=== PATIENT | female | born 1985 | race Hispanic/Latino ===

== ENCOUNTER 2024-02-03 20:45 | Observation (INO) | payer BC ==
[2024-02-03 21:29] LABS: #Basophils 0.05 10x3/uL (0.0-0.2); #Eosinphils 0.02 10x3/uL (0.0-0.5); #Monocytes 0.95 10x3/uL (0.0-1.1); #Neutrophils 13.15 10x3/uL (1.5-8.4); %Basophils 0.3 % (0.0-2.0); %Eosinophils 0.1 % (0.0-6.0); %Lymphocytes 16.4 % (18.0-47.0); %Monocytes 5.6 % (0.0-10.0); %Neutrophils 76.9 % (40.0-75.0); Critical Call w/ Read Back ERS.SM1; Hematocrit 15.3 % (34.9-44.5); Hemoglobin 4.8 g/dL (12.0-15.5); Mean Corpuscular HGB CONC 31.4 g/dL (32.0-36.0); Mean Platelet Volume 10.1 fl (7.4-10.4); Platelet Count 369 10x3/uL (150-450); RBC Distribution Width 14.5 % (11.5-14.5); Red Blood Cell (RBC) Count 1.78 10x6/uL (3.90-5.03); White Blood Cell (WBC) Count 17.1 10x3/uL (3.5-10.5)
[2024-02-03] MEDS ORDERED: Morphine 4 MG/ML VIAL ONE (21:29)
[2024-02-03] MEDS ORDERED: Tranexamic Acid 1,000 MG/10 ML VIAL ONE (21:30)
[2024-02-03] MEDS ORDERED: Ondansetron PF 4 MG/2 ML Vial ONE ×2 (21:30→23:46)
[2024-02-03 21:34] LABS: ALT (SGPT) 10 U/L (8-55); AST (SGOT) 12 U/L (5-34); Albumin 3.1 g/dL (3.5-5.0); Alkaline Phosphatase 27 U/L (40-110); Anion Gap 13 mmol/L (10-20); BUN (Urea Nitrogen) 10 mg/dL (7.0-18.7); Bilirubin, Total 0.2 mg/dL (0.2-1.2); Calc. Creatinine Clearance 0 mL/min (70-130); Calcium 7.9 mg/dL (7.8-10.44); Carbon Dioxide 20 mmol/L (22-29); Chloride 106 mmol/L (98-107); Estimated GFR 99; Globulin 3.1 g/dL (2.4-3.5); Glucose 177 mg/dL (70-105); INR-International Normal Ratio 1.1; Magnesium 1.9 mg/dL (1.6-2.6); Protein, Total 6.2 g/dL (6.0-8.3); Prothrombin Time 11.3 sec (9.5-12.1); Sodium 135 mmol/L (136-145)
[2024-02-03 22:33] LABS: PTT 20.8 sec (22.0-33.0)
[2024-02-03 23:58] LABS: Lactic Acid 1.2 mmol/L (0.5-2.2)
[2024-02-04] MEDS ORDERED: Ondansetron PF 4 MG/2 ML Vial IVP PRN (01:09)
[2024-02-04 01:56] VITALS: BMI 44.9
[2024-02-04 04:20] LABS: #Basophils 0.06 10x3/uL (0.0-0.2); #Monocytes 1.21 10x3/uL (0.0-1.1); #Neutrophils 13.49 10x3/uL (1.5-8.4); %Basophils 0.3 % (0.0-2.0); %Lymphocytes 17.5 % (18.0-47.0); %Monocytes 6.7 % (0.0-10.0); %Neutrophils 74.7 % (40.0-75.0); Hematocrit 20.9 % (34.9-44.5); Hemoglobin 6.9 g/dL (12.0-15.5); Mean Corpuscular Hemoglobin 28.3 pg (27.0-33.0); Mean Corpuscular Volume 85.7 fl (81.6-98.3); Mean Platelet Volume 9.7 fl (7.4-10.4); Platelet Count 295 10x3/uL (150-450); RBC Distribution Width 13.9 % (11.5-14.5); Red Blood Cell (RBC) Count 2.44 10x6/uL (3.90-5.03); White Blood Cell (WBC) Count 18.1 10x3/uL (3.5-10.5)
[2024-02-04] MEDS: Ibuprofen 800 MG TAB PO SCH (07:46)
[2024-02-04] MEDS ORDERED: B12 PO SCH (09:00)
[2024-02-04] MEDS ORDERED: IRON PS COMPLEX PO SCH (09:00)
[2024-02-04] MEDS ORDERED: [UNRECOGNIZED DRUG - OTHER] PO SCH (09:00)
[2024-02-04] MEDS: FLUoxetine HCl 10 MG CAP PO SCH (09:25)
[2024-02-04] MEDS: Tranexamic Acid 650 MG TAB PO SCH (09:25)
[2024-02-04] MEDS: Docusate 100 MG CAP PO SCH (09:26)
[2024-02-04 10:08] LABS: #Basophils 0.05 10x3/uL (0.0-0.2); #Eosinphils 0.03 10x3/uL (0.0-0.5); #Monocytes 1.14 10x3/uL (0.0-1.1); %Basophils 0.3 % (0.0-2.0); %Eosinophils 0.2 % (0.0-6.0); %Lymphocytes 25.4 % (18.0-47.0); %Monocytes 7.1 % (0.0-10.0); %Neutrophils 66.4 % (40.0-75.0); Hematocrit 22.8 % (34.9-44.5); Hemoglobin 7.8 g/dL (12.0-15.5); Mean Corpuscular HGB CONC 34.2 g/dL (32.0-36.0); Mean Corpuscular Hemoglobin 29.3 pg (27.0-33.0); Mean Corpuscular Volume 85.7 fl (81.6-98.3); Platelet Count 260 10x3/uL (150-450); RBC Distribution Width 14.1 % (11.5-14.5); Red Blood Cell (RBC) Count 2.66 10x6/uL (3.90-5.03); White Blood Cell (WBC) Count 16.1 10x3/uL (3.5-10.5)
[2024-02-04 11:50] VITALS: BP 130/67; TEMP 99.1
== END 2024-02-04 12:40 | disposition home or self-care (01) ==
LOC: CSHERS 20:45 → INTOOBSV 22:49 → CSHPP 22:49 → UNDOADMIN 02-04 00:45 → CSHPP 02-04 00:45 → UNDODISIN 02-04 12:40
PROVIDERS: ADMIT Obstetrics & Gynecology; ATTEND Obstetrics & Gynecology
DX: D25.9 Leiomyoma of uterus, unspecified (principal); D50.9 Iron deficiency anemia, unspecified; I35.0 Nonrheumatic aortic (valve) stenosis; N83.299 Other ovarian cyst, unspecified side; Z79.899 Other long term (current) drug therapy; Z88.1 Allergy status to other antibiotic agents; Z87.59 Personal history of other complications of pregnancy, childbirth and the puerperium
CPT/HCPCS: 36415; 36430; 76856; 80053; 82274; 83605; 83735; 85025; 85610; 85730; 86850; 86900; 86901; 86922; 93005; G0378; J2270; J2405; P9016